=== PATIENT | female | born 1940 | race Hispanic/Latino ===

== ENCOUNTER 2017-07-14 20:27 | Emergency (ER) | payer MEDICARE, OTHER ==
[~2017-07-14] VITALS: Ht 154.9 cm; Wt 78.0 kg
[~2017-07-14 20:27] MED LIST: ADULT ASPIRIN81 MG PO; AMLODIPINE BESY10 MG PO; AMLODIPINE BESYL5 MG PO; ASPIR 8181 MG PO; BACTROBAN15 G1 SUBD; CARISOPRODOL350 MG PO; COUMADIN5 MG PO; DIGOXIN125 MCG PO; ENDOCET 5-3251 EACH PO; FORTICAL3.7 ML INH; FUROSEMIDE40 MG PO; IMDUR30 MG PO; INSULIN ASPART SQ; ISOSORBIDE MONO20 MG PO; LANTUS100 UNITS/ SQ; LIDODERM700 MG TOP; METOPROLOL TART25 MG PO; NOVOLIN 70100 UNITS/ SC; NOVOLIN 70100 UNITS/ SQ; NOVOLOG100 UNIT/1 SC; OMEPRAZOLE40 MG PO; PLAVIX75 MG PO; SIMVASTATIN40 MG PO; TOPROL XL25 MG PO; TRAMADOL PO; TYLENOL WITH C1 EACH PO; ULTRAM 50MG50 MG PO; VASOTEC10 MG PO; VITAMIN D-40400 UNIT PO; Z.0.AMLODIPINE BESYL PO; Z.0.ENALAPRIL MALEA2 PO; Z.0.FUROSEMIDE20 MG PO; Z.0.PLAVIX75 MG PO; Z.0.SIMVASTATIN40 MG PO
--- OUTSIDE RECORDS SUMMARY | 2017-07-14 20:31 | XMS REPORT ---
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 Allergies, Adverse Reactions, Alerts This patient has no known allergies or adverse reactions. Medications This patient has no known medications. Results Test Description Test Time Test Comments Text Results Atomic Results Result Comments CHEST SINGLE (PORTABLE) [place] [address] Patient Name: FAY LUO MR #: [id number] : 1940 Age/Sex: 76/F Req #: [id number] Adm Physician: Ordered by: ALIE CUELLAR MD Report #: [id number] Location: ER Room/Bed: Procedure: [id number] DX/CHEST SINGLE (PORTABLE) Exam Date: 10/18/16 Exam Time: 1340 REPORT STATUS: Signed PROCEDURE: CHEST SINGLE (PORTABLE) COMPARISON: 09/18/2016. INDICATIONS: HIGH BLOOD PRESSURE TOO HIGH FINDINGS: The lungs are well-inflated. No focal airspace consolidation, pleural effusion, or pneumothorax. Subsegmental atelectasis or scar in the left lung base, unchanged. Stable cardiomediastinal contour with tortuosity and atherosclerotic calcification of the thoracic aorta. Normal heart size. Coronary artery stents are again noted. No pulmonary edema. Small hiatal hernia. CONCLUSION: No acute cardiopulmonary abnormality. Dictated by: García Paredes M.D. on 10/18/2016 at 14:25 Electronically approved by: García Paredes M.D. on 10/18/2016 at 14 :25 Dictated By: GARCÍA PAREDES MD [id number] Transcribed By: ARSLAN on 10/18/16 142 COPY TO: ALIE CUELLAR MD
--- NOTE | 2017-07-14 21:54 | Diagnostic Imaging Report ---
Exam: Head CT without contrast History: Fall hit back of head Comparison studies: Head CT and brain MRI of 06/21/2016. Technique: Axial images were obtained from the skull base to the vertex. Coronal and sagittal images reconstructed from the axial data. Intravenous contrast: None Findings: Scalp: Small parieto-occipital scalp hematoma. Bones: No fractures, blastic or lytic lesions. Brain sulci: Mildly prominent. Ventricles: Compensatory dilatation. No hydrocephalus. Extra-axial spaces: No masses, no fluid collection. Parenchyma: No mass, acute hemorrhage or acute cortical vascular insult. Patchy and confluent hypodensities in the supratentorial white matter are nonspecific but most compatible with chronic small vessel ischemic changes. Small chronic lacunar insult in the right subinsular white matter and right frontal olmstead radiata. There are small cortical-subcortical insults in the midline posterior and inferior left cerebellum. Sellar/suprasellar region: No abnormalities. Craniocervical junction: Patent foramen magnum. No Chiari one malformation. Incidental findings: Atherosclerotic calcifications in the carotid siphons and intradural vertebral arteries. IMPRESSION: 1. Paramedian parietal occipital scalp hematoma without underlying fracture. 2. No acute intracranial abnormalities. 3. Mild generalized volume loss. 4. Severe chronic microvascular ischemic changes with chronic insults as described. Signed by: Dr. Froylan Menjivar M.D. on 07/14/2017 9:50 PM
[2017-07-14 23:22] VITALS: BP 125/62
== END 2017-07-14 23:48 | disposition home or self-care (01) ==
LOC: ER 20:27
DX: S00.03XA Contusion of scalp, initial encounter (principal); W05.0XXA Fall from non-moving wheelchair, initial encounter; Y92.89 Other specified places as the place of occurrence of the external cause; I10 Essential (primary) hypertension; Z86.718 Personal history of other venous thrombosis and embolism
CPT/HCPCS: 70450; 99283

== ENCOUNTER → 2018-04-21 | Outpatient (CLI) | payer MEDICARE ==
--- NOTE | 2018-04-21 15:45 | Diagnostic Imaging Report ---
EXAM: CHEST 2 VIEWS, PA and lateral DATE: 04/21/2018 Time stamp on exam: 2:12 PM INDICATION: Cough COMPARISON: 09/18/2016 FINDINGS: LINES/TUBES: None LUNGS: No consolidations or edema. PLEURA: No effusions or pneumothorax. HEART AND MEDIASTINUM: Normal size and contour. Tortuous thoracic aorta which is calcified. 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 BONES AND SOFT TISSUES: No acute findings with degenerative changes of the spine. IMPRESSION: No acute thoracic abnormality. Signed by: Dr. Carrillo Heard DO on 04/21/2018 3:42 PM
== END ==
LOC: RAD 13:52
PROVIDERS: ATTEND Internal Medicine
DX: R05 Cough (principal)
CPT/HCPCS: 71046

== ENCOUNTER 2018-08-02 12:39 | Observation (INO) | payer MEDICARE, OTHER ==
[~2018-08-02] VITALS: Ht 154.9 cm; Wt 90.7 kg
[2018-08-02] MEDS ORDERED: SODIUM CHLORIDE 0.9% 500ML 500 ML IV STA (13:47)
[2018-08-02 14:04] LABS: BASOPHILS # (AUTO) 0.1 (0.0-0.1); BASOPHILS % 0.7 % (0.0-1.0); EOSINOPHILS % 0.2 % (0.0-6.0); HEMOGLOBIN 11.3 g/dL (12.0-16.0); LYMPHOCYTES # (AUTO) 2.2 (1.0-3.2); LYMPHOCYTES % 18.4 % (18.0-39.1); MEAN CORPUSCULAR HEMOGLOBIN 28.6 pg (28-32); MEAN CORPUSCULAR HGB CONC 32.3 g/dL (31-35); MEAN CORPUSCULAR VOLUME 88.6 fL (81-99); MONOCYTES # (AUTO) 0.8 (0.2-0.8); MONOCYTES % 6.9 % (4.4-11.3); NEUTROPHILS # (AUTO) 8.8 (2.1-6.9); NEUTROPHILS % 73.4 % (38.7-80.0); PLATELET COUNT 378 x10e3/uL (140-360); RED BLOOD COUNT 3.95 x10e6/uL (3.6-5.1); RED CELL DISTRIBUTION WIDTH 17.7 % (11.7-14.4)
[2018-08-02 14:08] LABS: INR 1.6; PROTHROMBIN TIME 19.7 seconds (11.9-14.5)
[2018-08-02 14:18] LABS: ALBUMIN 3.1 g/dL (3.5-5.0); ALBUMIN/GLOBULIN RATIO 0.8 (0.8-2.0); ANION GAP 13.6 mmol/L (8-16); CALCIUM 9.3 mg/dL (8.4-10.2); CREATININE, SERUM 1.05 mg/dL (0.57-1.11); POTASSIUM 4.6 mmol/L (3.5-5.1)
[2018-08-02 14:20] LABS: BILIRUBIN,URINE NEGATIVE (NEGATIVE); CLARITY,URINE SL CLOUDY (CLEAR); KETONES,URINE NEGATIVE (NEGATIVE); LEUKOCYTE ESTERASE ,URINE SMALL (NEGATIVE); NITRITE,URINE NEGATIVE (NEGATIVE); PROTEIN,URINE DIPSTICK NEGATIVE (NEGATIVE); URINE UROBILINOGEN 0.2 mg/dL (0.2 - 1)
[2018-08-02 14:21] LABS: COLOR,URINE YELLOW (YELLOW)
[2018-08-02 14:24] LABS: CREATINE KINASE MB 0.6 ng/mL (0-5.0)
[2018-08-02 14:27] LABS: WBC,URINE (MAN) 21-50 /HPF (0-5)
[2018-08-02 14:28] LABS: BACTERIA,URINE MODERATE /HPF; EPITHELIAL CELLS,URINE FEW /LPF; RBC,URINE 0-5 /HPF (0-5)
--- NOTE | 2018-08-02 15:11 | Diagnostic Imaging Report ---
EXAMINATION: CHEST SINGLE (PORTABLE) INDICATION: ^ERMD ORDER ^[id number] ^1405 ^Y COMPARISON: Chest radiograph 04/21/2018 FINDINGS: AP view TUBES and LINES: None. LUNGS: Lungs are well inflated. Mild bilateral central pulmonary vascular congestion. Bibasilar atelectasis. PLEURA: No pleural effusion or pneumothorax. HEART AND MEDIASTINUM: Stable mild enlargement of the cardiac silhouette. The pulmonary arteries appear enlarged but is stable. BONES AND SOFT TISSUES: No acute osseous lesion. Soft tissues are unremarkable. UPPER ABDOMEN: No free air under the diaphragm. IMPRESSION: Stable cardiomegaly with associated central pulmonary vascular congestion. Signed by: Dr. Bonny Mac M.D. on 08/02/2018 3:08 PM
[2018-08-02] MEDS ORDERED: ONDANSETRON HCL INJ 2MG/ML 2ML 2 MG/ML VIAL IV PRN (15:30)
[2018-08-02] MEDS: CEFTRIAXONE SOD 1 GM/NS 50 ML 50 ML IV SCH (15:48)
[2018-08-02] MEDS: SODIUM CHLORIDE 0.9% 1000ML 1,000 ML IV SCH (15:48)
--- NOTE | 2018-08-02 16:13 | NUR ---
Received patient to the unit at this time from the ER. Patient is alert and oriented at this time. PIV with NS at 100 infusing. Family at the bedside. Patient has no complaints at this time. Oriented to the room and surroundings. Call pool within reach. Bed is low and locked. Educated patient to call for assistance. Patient ambulates with walker. Personal walker at the bedside.
[2018-08-02 16:34] VITALS: BP 152/70
[2018-08-02] MEDS ORDERED: PANTOPRAZOLE SO40 MG PO (18:37)
[2018-08-02] MEDS ORDERED: LEXAPRO10 MG PO (18:37)
[2018-08-02] MEDS ORDERED: ASPIRIN81 MG PO (18:37)
[2018-08-02] MEDS ORDERED: NITROGLYCERIN0.4 MG SL (18:37)
[2018-08-02] MEDS ORDERED: AMLODIPINE BESYL5 MG PO (18:37)
[2018-08-02 19:42] VITALS: BP 137/65
[2018-08-02 20:00] VITALS: BP 137/65
--- NOTE | 2018-08-02 20:00 | NUR ---
called for medication orders for insulin as the patients blood sugar is 228. Dr. Cerda called back for Dr. Bran orders to start low dose sliding scale starting with a blood sugar of 200 sliding scale. Restart home medications except blood pressure medications.
[2018-08-02 20:05] LABS: CREATINE KINASE MB 0.7 ng/mL (0-5.0)
[2018-08-02] MEDS ORDERED: DEXTROSE 50% SYRINGE 50 ML IV PRN (21:15)
[2018-08-02] MEDS: INSULIN REGULAR, HUMAN 100 UNIT/1 ML 3ML VIAL SQ SCH (22:23)
[2018-08-03] VITALS (9 sets, daily range): BP systolic 112–154; BP diastolic 57–70
[2018-08-03] MEDS: SODIUM CHLORIDE 0.9% 1000ML 1,000 ML IV SCH ×3 (00:29→21:57)
[2018-08-03] MEDS: CEFTRIAXONE SOD 1 GM/NS 50 ML 50 ML IV SCH ×2 (03:42→15:14)
[2018-08-03 05:25] LABS: BASOPHILS # (AUTO) 0.1 (0.0-0.1); BASOPHILS % 0.7 % (0.0-1.0); EOSINOPHILS # (AUTO) 0.1 (0.0-0.4); EOSINOPHILS % 1.2 % (0.0-6.0); HEMATOCRIT 32.7 % (34.2-44.1); HEMOGLOBIN 10.4 g/dL (12.0-16.0); LYMPHOCYTES # (AUTO) 3.5 (1.0-3.2); LYMPHOCYTES % 36.4 % (18.0-39.1); MEAN CORPUSCULAR HGB CONC 31.8 g/dL (31-35); MEAN CORPUSCULAR VOLUME 88.1 fL (81-99); MONOCYTES # (AUTO) 0.7 (0.2-0.8); MONOCYTES % 7.1 % (4.4-11.3); NEUTROPHILS # (AUTO) 5.2 (2.1-6.9); NEUTROPHILS % 54.4 % (38.7-80.0); PLATELET COUNT 379 x10e3/uL (140-360); RED BLOOD COUNT 3.71 x10e6/uL (3.6-5.1); RED CELL DISTRIBUTION WIDTH 17.6 % (11.7-14.4)
[2018-08-03 05:40] LABS: CALCIUM 8.6 mg/dL (8.4-10.2); CREATININE, SERUM 0.91 mg/dL (0.57-1.11)
[2018-08-03 06:01] LABS: CREATINE KINASE MB 0.9 ng/mL (0-5.0)
[2018-08-03] MEDS: INSULIN REGULAR, HUMAN 100 UNIT/1 ML 3ML VIAL SQ SCH ×4 (07:30→21:09)
[2018-08-03] MEDS: ESCITALOPRAM OXALATE 10 MG TAB PO SCH (09:21)
[2018-08-03] MEDS: ASPIRIN 81 MG ENTERIC COATED PO SCH (09:21)
[2018-08-03] MEDS: METOPROLOL TARTRATE 25 MG TAB PO SCH (09:21)
[2018-08-03] MEDS: PANTOPRAZOLE SOD 40 MG TABEC PO SCH (09:21)
[2018-08-03] MEDS: FUROSEMIDE 20 MG TAB PO SCH (09:21)
--- NOTE | 2018-08-03 10:59 | NUR ---
SW met with patient and grand daughter at bedside. Patient resides with one of her daughters (Leatha). Patient has a large family who are involved in her care and all lives very close to one another. Patient receives homecare services M-F 9 hours daily. Patient requires assistance with ADL and uses a rollator, cane and shower chair. Patient has not had any changed in medication and fully understands what each prescription is for. Patient has not had any hospitalization in the last 6 months.
--- NOTE | 2018-08-03 11:03 | NUR ---
AGUSTIN letter discussed with granddaughter and patient. AGUSTIN signed and copy placed in chart.
[2018-08-03 13:07] LABS: CREATINE KINASE MB 1.2 ng/mL (0-5.0)
--- NOTE | 2018-08-03 13:26 | History and Physical ---
CHIEF COMPLAINT: "I almost passed out in the shower. HISTORY OF PRESENT ILLNESS: This 78-year-old woman, who presented to [facility] with episode of presyncope and lightheadedness. On admission to emergency room, the patient's systolic blood pressure was 70 mmHg. The patient states that on day of admission, she began feeling lightheaded and weak. In the emergency room, the patient was found to have urinary tract infection. The preliminary urine culture are showing gram-negative bacillus greater than 100,000 colony- forming units/mL urine. On admission, the patient's white blood cell count was 12,400 with 73% segmented neutrophils. The patient's white blood cell count today is 9500 with 54% segmented neutrophils. On admission, the patient's BUN and creatinine were 19 and 1.05 respectively. Today's BUN and creatinine are 19 and 0.91 respectively. The patient was admitted for further evaluation and treatment. REVIEW OF SYSTEMS: GENERAL: The patient complained of chills, but no fever on day of admission and also complained of lightheadedness and generalized weakness. HEENT: Denies any headaches or vision changes. CARDIOVASCULAR/RESPIRATORY: No chest pain. No shortness of breath or cough. No palpitations. GI: No nausea, vomiting, or constipation. : No UTI symptoms other than dark urine. NEUROMUSCULAR: No limb weakness or numbness, but she felt very lightheaded and weak, and almost passed out. ALLERGIES: ADHESIVE TAPE. PAST SURGICAL HISTORY: 1. Lumbar spine surgery. 2. Four coronary stents placed in 2008. 3. Right carotid endarterectomy. 4. Cholecystectomy and exploratory laparotomy with repair of paraesophageal hiatal hernia, and also inguinal hernia repair. PAST MEDICAL HISTORY: 1. Hypertensive heart disease. 2. Type 2 diabetes. 3. Mild obesity. 4. Coronary artery disease (history of 4 coronary stents placed in 2008). 5. GERD. 6. Ischemic heart disease. 7. Chronic atrial fibrillation. 8. History of pulmonary embolism. 9. History of deep venous thrombosis. 10. Depression. 11. Hyperlipidemia. FAMILY HISTORY: Both parents with coronary artery disease. SOCIAL HISTORY: This woman is a and lives with her adult daughter. No history of tobacco or alcohol use. She has a very supportive family. HOME MEDICATIONS: 1. Amlodipine 2.5 mg daily. 2. Enalapril 20 mg daily. 3. Lexapro 10 mg daily. 4. Furosemide 20 mg daily. 5. NovoLog insulin 8 to 12 units 3 times a day with meals. 6. Isosorbide mononitrate 30 mg daily. 7. Metoprolol tartrate 25 mg daily. 8. Nitroglycerin 0.4 mg 1 sublingual every 5 minutes p.r.n. chest pain. 9. Pantoprazole 40 mg daily. 10. Simvastatin 40 mg at bedtime. 11. Warfarin 5 mg every evening. PHYSICAL EXAMINATION: GENERAL: She is awake, alert, fluent, in no distress, very pleasant. Adult daughter and granddaughter at bedside. VITAL SIGNS: Height 5 feet 1 inch, weight 200 pounds, BMI 38, blood pressure 128/58, pulse 60, respiratory rate is 18, temperature 96.0, and oxygen saturation 96% on room air. INTEGUMENT: Skin is warm and dry. No pallor, jaundice, or diaphoresis. HEENT: Anicteric sclerae. Moist mucous membrane. NECK: Supple. CARDIOVASCULAR: Distant heart sounds. Regular rate and rhythm. LUNGS: No rales. No rhonchi or wheezes. ABDOMEN: Obese and benign. EXTREMITIES: No edema or deformity. NEURO: Intact. DIAGNOSES: 1. Sepsis secondary to gram-negative teja urinary tract infection. 2. Chronic atrial fibrillation. 3. History of pulmonary emboli/deep venous thrombosis. 4. History of cerebrovascular accident. 5. Coronary artery disease (history of coronary stent placement in 2008). 6. Obesity. BMI 38. 7. Type 2 diabetes mellitus. PLAN: 1. Follow urine culture. 2. Intravenous ceftriaxone. 3. Follow electrolytes and renal function. 4. Continue warfarin therapy since she has history of chronic atrial fibrillation as well as deep venous thrombosis and pulmonary emboli. 5. Follow up prothrombin time and INR level. Spent 35 minutes in the care of the patient. MD HILDA Zepeda/BLANCA /[id number] MTDD
--- NOTE | 2018-08-03 15:53 | NUR ---
Blood sugar checked twice, first time is 47, second time is 51. Two orange juice given to patient. Patient is asymptomatic at this time. A&Ox3. Will recheck sugar.
--- NOTE | 2018-08-03 17:09 | NUR ---
Recheck of patient's blood sugar is 126. No additional interventions needed.
[2018-08-03] MEDS: WARFARIN SOD 2 MG TAB PO SCH (17:21)
[2018-08-03] MEDS: SIMVASTATIN 40 MG TAB PO SCH (21:09)
[2018-08-04] VITALS (9 sets, daily range): BP systolic 128–174; BP diastolic 59–80
[2018-08-04] MEDS: CEFTRIAXONE SOD 1 GM/NS 50 ML 50 ML IV SCH ×2 (03:13→14:49)
[2018-08-04 05:07] LABS: BASOPHILS # (AUTO) 0.1 (0.0-0.1); BASOPHILS % 1.1 % (0.0-1.0); EOSINOPHILS # (AUTO) 0.2 (0.0-0.4); HEMATOCRIT 30.7 % (34.2-44.1); HEMOGLOBIN 9.9 g/dL (12.0-16.0); LYMPHOCYTES # (AUTO) 3.1 (1.0-3.2); LYMPHOCYTES % 43.5 % (18.0-39.1); MEAN CORPUSCULAR HEMOGLOBIN 28.3 pg (28-32); MEAN CORPUSCULAR HGB CONC 32.2 g/dL (31-35); MEAN CORPUSCULAR VOLUME 87.7 fL (81-99); MONOCYTES # (AUTO) 0.7 (0.2-0.8); MONOCYTES % 9.3 % (4.4-11.3); NEUTROPHILS # (AUTO) 3.1 (2.1-6.9); PLATELET COUNT 372 x10e3/uL (140-360); RED CELL DISTRIBUTION WIDTH 18.1 % (11.7-14.4)
[2018-08-04 05:17] LABS: INR 1.65; PROTHROMBIN TIME 20.1 seconds (11.9-14.5)
[2018-08-04 05:26] LABS: ALANINE AMINOTRANSFERASE 11 IU/L (0-55); ALBUMIN 2.6 g/dL (3.5-5.0); ALBUMIN/GLOBULIN RATIO 0.8 (0.8-2.0); ALKALINE PHOSPHATASE 71 IU/L (40-150); ANION GAP 9.7 mmol/L (8-16); BLOOD UREA NITROGEN 12 mg/dL (7-26); BUN/CREATININE RATIO 15 (6-25); CALCIUM 8.2 mg/dL (8.4-10.2); CARBON DIOXIDE 21 mmol/L (22-29); CHLORIDE 110 mmol/L (98-107); CREATININE, SERUM 0.79 mg/dL (0.57-1.11); EST GLOMERULAR FILTRATION RATE > 60 ML/MIN (60-); GLUCOSE 143 mg/dL (74-118); POTASSIUM 3.7 mmol/L (3.5-5.1); SODIUM 137 mmol/L (136-145)
--- NOTE | 2018-08-04 05:32 | NUR ---
patient called around midnight stating her IV was leaking. Upon inspection the IV was leaking. The left AC IV was removed with the catheter intact. No redness noted. New IV was placed in the right forearm 22g.
[2018-08-04] MEDS: INSULIN REGULAR, HUMAN 100 UNIT/1 ML 3ML VIAL SQ SCH ×4 (07:30→20:45)
[2018-08-04] MEDS: SODIUM CHLORIDE 0.9% 1000ML 1,000 ML IV SCH ×3 (07:32→20:41)
[2018-08-04] MEDS: PANTOPRAZOLE SOD 40 MG TABEC PO SCH (09:11)
[2018-08-04] MEDS: ESCITALOPRAM OXALATE 10 MG TAB PO SCH (09:11)
[2018-08-04] MEDS: METOPROLOL TARTRATE 25 MG TAB PO SCH (09:11)
[2018-08-04] MEDS: ASPIRIN 81 MG ENTERIC COATED PO SCH (09:11)
[2018-08-04] MEDS: FUROSEMIDE 20 MG TAB PO SCH (09:11)
[2018-08-04] MEDS ORDERED: ONDANSETRON HCL 4 MG ORAL DISINTEGRATING TAB PO PRN (13:30)
--- NOTE | 2018-08-04 16:30 | NUR ---
per -cardiology, if v/s stable, patient may d/c tomorrow 08/05/18.
[2018-08-04] MEDS: WARFARIN SOD 2 MG TAB PO SCH (17:13)
[2018-08-04] MEDS: SIMVASTATIN 40 MG TAB PO SCH (20:41)
--- NOTE | 2018-08-04 23:18 | Consultation ---
DATE OF CONSULTATION: Cardiology Consultation CHIEF COMPLAINT: The patient is a 78-year-old with a near syncopal episode. HISTORY OF PRESENT ILLNESS: The patient came to the emergency room feeling very dizzy and felt like she was going to pass out. The patient was given IV fluids with improvement in her symptoms. The patient was noted to have an elevated white blood cell count and urinary tract infection. The patient had no chest pain. No shortness of breath. No nausea. No vomiting. PAST MEDICAL HISTORY: Significant for: 1. Coronary stents placed in 2008. 2. Previous right carotid endarterectomy. 3. Lumbar laminectomy. 4. Previous cholecystectomy. 5. Previous repair of paraesophageal hiatal hernia. 6. Coronary artery disease. 7. Hypertension. 8. Diabetes. 9. Chronic atrial fibrillation. 10. History of deep venous thrombosis and pulmonary embolism. MEDICATIONS: At home include amlodipine, enalapril, Lexapro, furosemide, insulin, metoprolol, warfarin, and simvastatin. SOCIAL HISTORY: The patient lives with her daughter. The patient does not smoke and does not drink. PHYSICAL EXAMINATION: GENERAL: The patient is a well-developed, well-nourished female, in no obvious distress. VITAL SIGNS: Current vital signs include a temperature of 97.9, blood pressure of 162/69, and pulse of 62. HEAD, EARS, EYES, NOSE, AND THROAT: The patient's cranium was normocephalic and atraumatic. Extraocular muscles were intact. Sclerae were anicteric. Pupils were equal, round, and reactive to light. There was no pallor or cyanosis of the oral mucosa. There is no erythema or edema of the throat. NECK: Supple. No jugular venous distention. No carotid bruits. CHEST: Demonstrated rhonchi bilaterally. CARDIAC: Demonstrated a normal S1 and S2 with a short 2/6 systolic murmur. ABDOMEN: Demonstrated good bowel sounds. No tenderness and no masses. EXTREMITIES: There is no clubbing, no cyanosis, and no edema. NEUROLOGIC: The patient was alert and oriented x3. Cranial nerves II through XII are intact. Motor strength was 5/5 in all limbs. IMAGING DATA: The patient's EKG demonstrated normal sinus rhythm with an old anterior wall myocardial infarction. IMPRESSION: The patient is a 78-year-old with a syncopal episode of unclear origin, but I suspect this is most likely related to volume depletion and combination with the urinary tract infection. RECOMMENDATIONS: Are as follows: 1. The patient will need to be monitored on telemetry. 2. I feel that an echocardiogram should be done. 3. I feel that the patient should have a carotid duplex done. MD DESI Dugan/MODL /[id number] cc: Miryam Bran MD
[2018-08-05] VITALS: BP 143/73
[2018-08-05] MEDS: CEFTRIAXONE SOD 1 GM/NS 50 ML 50 ML IV SCH (03:50)
[2018-08-05 04:00] VITALS: BP 125/73
--- NOTE | 2018-08-05 04:04 | Discharge Summary ---
HOSPITAL COURSE: Ms. Mcrae is a 78-year-old female, who came to the emergency room because she was lightheaded and had like a near syncopal episode. She was not feeling good. Blood pressure was low, so they called the ambulance and she was brought to the emergency room. The urine culture showed Klebsiella pneumoniae, so the patient was hypotensive with elevated white count and UTI, so she was developing sepsis. She was started on IV antibiotics. She has a long history of heart problems also. PHYSICAL EXAMINATION: GENERAL: Today, she is awake and alert. She is feeling better. VITAL SIGNS: Temperature is 96.9 and blood pressure is 162/69. HEART: Regular rate. LUNGS: Clear to auscultation. ABDOMEN: Soft. LABORATORY DATA: On the blood work; potassium is 3.7, creatinine is 0.79, glucose is 143. White count at admission was 12.04, now 7.10, hemoglobin is 9.9, hematocrit 30.7. Urine show 21-50 white blood cells. A urine culture is showing Klebsiella pneumoniae that is sensitive to almost all the antibiotics except for ampicillin. Chest x-ray on admission has a stable cardiomegaly with associated central pulmonary vascular congestion. ASSESSMENT: 1. Sepsis secondary to urinary tract infection. 2. Urinary tract infection with Klebsiella pneumoniae. 3. Near syncopal episode. 4. Chronic atrial fibrillation. 5. Coronary artery disease, status post stent. 6. History of deep venous thrombosis and pulmonary embolism. 7. Diabetes type 2 with hypoglycemia. PLAN: At the present time, the patient is doing better. Blood pressure is a little elevated. White count back to normal. She has been afebrile. We have the urine culture results back, so upon discharge, she is going to be on Cipro 250 twice a day for seven more days since she has had long history of heart problems. We are going to get a Cardiology consult with Dr. Olivas to evaluate the patient prior to discharge and if it is okay with him, she is going to be able to go home on p.o. antibiotics. She is to continue her metoprolol 25 mg daily, warfarin 4 mg daily, Protonix 40 mg daily, simvastatin 40 mg daily, Lexapro 10 mg daily, furosemide 20 mg daily, and continue diabetes medications. All this was discussed with the patient. All questions were answered to satisfaction. She needs follow up with me in one week. Please see home medication reconciliation list. MD ANA ROSA London/BLANCA /[id number]
--- NOTE | 2018-08-05 07:10 | NUR ---
Walking rounds done and report received. Patient is awake and alertx3 in NAD. Tele #[phone], [phone]. Patient instructed to call for assistance as needed and verbalized understanding. Call pool within reach.
--- NOTE | 2018-08-05 07:14 | NUR ---
report given to Poornima HUANG. Patient is A&0X3, iv intact
[2018-08-05] MEDS: INSULIN REGULAR, HUMAN 100 UNIT/1 ML 3ML VIAL SQ SCH (07:30)
[2018-08-05 08:03] VITALS: BP 148/65
[2018-08-05] MEDS: ASPIRIN 81 MG ENTERIC COATED PO SCH (08:04)
[2018-08-05] MEDS: FUROSEMIDE 20 MG TAB PO SCH (08:04)
[2018-08-05] MEDS: ESCITALOPRAM OXALATE 10 MG TAB PO SCH (08:04)
[2018-08-05] MEDS: PANTOPRAZOLE SOD 40 MG TABEC PO SCH (08:05)
[2018-08-05] MEDS: METOPROLOL TARTRATE 25 MG TAB PO SCH (08:05)
[2018-08-05] MEDS ORDERED: CIPRO500 MG PO (09:18)
--- NOTE | 2018-08-05 09:25 | Discharge Summary ---
HOSPITAL COURSE: Ms. Mcrae is a 78-year-old female with multiple medical problems, history of CAD status post stent, diabetes, hypertension, who came to the emergency room complaining of feeling weak like she was going to pass out. When she came to the emergency room she was found to have a urinary tract infection with Klebsiella pneumoniae. She was started on IV antibiotics. Cardiology evaluated her and cleared her today to go home. PHYSICAL EXAMINATION: GENERAL: Today, she is awake and alert. She is feeling better. VITAL SIGNS: Temperature is 97.6, blood pressure 148/65. HEART: Irregularly irregular. LUNGS: Clear to auscultation. ABDOMEN: Distended and soft. EXTREMITIES: Lower extremity, no edema, no erythema. LABORATORY DATA: On the blood work, potassium 3.7, creatinine is 0.79, glucose is 143. White count is 7.10, hemoglobin 9.9, hematocrit 30.7. The urine culture is showing Klebsiella pneumoniae sensitive to Cipro. Chest x-ray on admission shows stable cardiomegaly and associated pulmonary vascular congestion. DISCHARGE DIAGNOSES: 1. Sepsis secondary to urinary tract infection. 2. Urinary tract infection with Klebsiella pneumoniae. 3. Near syncopal episode. 4. Chronic atrial fibrillation. 5. Coronary artery disease, status post stent. 6. Diabetes type 2 with hyperglycemia. 7. History of pulmonary embolism and deep vein thrombosis. PLAN: The plan at present time is to discharge the patient home on Cipro 250 mg twice a day for 7 more days. She needs to continue all her home medications. She is on Protonix 40 mg daily, simvastatin 40 mg daily, Lexapro 10 mg daily, furosemide 20 mg daily, metoprolol 25 mg daily, warfarin 4 mg daily, aspirin 81 mg daily. She needs follow up with me in 1 week, with marine fitter as directed by him. She is to call me or come back to the emergency room if any recurrent problem. All this was discussed with the patient. All questions were answered to satisfaction. MD ANA ROSA London/BLANCA /[id number]
--- NOTE | 2018-08-05 10:20 | NUR ---
Patient discharged home with daughter, written instructions and prescription. Both verbalized understanding. IV dc'd earlier, cath intact and small dressing applied.
== END 2018-08-05 10:09 | disposition home or self-care (01) ==
LOC: ER 12:39 → ERHOLD 15:16 → MED/SURG2 16:14
PROVIDERS: ADMIT Internal Medicine; ATTEND Internal Medicine
DX: A41.50 Gram-negative sepsis, unspecified (principal); N30.00 Acute cystitis without hematuria; I48.2 Chronic atrial fibrillation; I95.9 Hypotension, unspecified; R55 Syncope and collapse; E11.649 Type 2 diabetes mellitus with hypoglycemia without coma; I11.0 Hypertensive heart disease with heart failure; I50.30 Unspecified diastolic (congestive) heart failure; I25.2 Old myocardial infarction; E78.5 Hyperlipidemia, unspecified; Z91.048 Other nonmedicinal substance allergy status; Z83.3 Family history of diabetes mellitus; Z82.49 Family history of ischemic heart disease and other diseases of the circulatory system; Z95.5 Presence of coronary angioplasty implant and graft; Z90.49 Acquired absence of other specified parts of digestive tract; E66.9 Obesity, unspecified; I25.10 Atherosclerotic heart disease of native coronary artery without angina pectoris; F32.9 Major depressive disorder, single episode, unspecified; K21.9 Gastro-esophageal reflux disease without esophagitis; Z86.718 Personal history of other venous thrombosis and embolism; Z86.711 Personal history of pulmonary embolism; Z79.01 Long term (current) use of anticoagulants; Z86.73 Personal history of transient ischemic attack (TIA), and cerebral infarction without residual deficits; Z68.38 Body mass index [BMI] 38.0-38.9, adult; B96.1 Klebsiella pneumoniae [K. pneumoniae] as the cause of diseases classified elsewhere; Z79.4 Long term (current) use of insulin
CPT/HCPCS: 36415 ×4; 71045; 80048; 80053 ×2; 81001; 82550 ×2; 82553 ×2; 82948 ×4; 84484 ×2; 85025 ×3; 85610 ×2; 85730; 87086; 87186; 93005; 93880; 96360; 99284; G0378 ×4; J0696 ×4; J1817; J7030 ×3; J7040; S0164 ×3

== ENCOUNTER 2019-01-15 09:59 | Emergency (ER) | payer MEDICARE, OTHER ==
[~2019-01-15] VITALS: Ht 154.9 cm; Wt 90.7 kg
[~2019-01-15 09:59] MED LIST changes: +ASPIRIN81 MG PO; +CIPRO500 MG PO; +LEXAPRO10 MG PO; +NITROGLYCERIN0.4 MG SL; +PANTOPRAZOLE SO40 MG PO
--- OUTSIDE RECORDS SUMMARY | 2019-01-15 10:05 | XMS REPORT | Summary of Care ---
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 Active furosemide 20 mg tablet Take 20 mg by 0 mouth daily. Active enalapril 20 mg tablet Take 20 mg by 0 mouth daily. Active metoprolol succinate XL Take 25 mg by 0 25 mg 24 hr tablet mouth daily. Active warfarin (COUMADIN) 4 mg Take 4 mg by 0 tablet mouth. Active simvastatin 40 mg tablet Take 40 mg by 0 mouth at bedtime. Active amLODIPine 5 mg tablet Take 5 mg by 0 mouth daily. Active pantoprazole 40 mg EC Take 40 mg by 0 tablet mouth daily. Active escitalopram oxalate Take 10 mg by 0 (LEXAPRO) 10 mg tablet mouth daily. Active alendronate 70 mg tablet Take 70 mg by 0 mouth weekly. Active Insulin Syringe-Needle Use as 100 Syringe 2 U-100 (BD INSULIN directed 9 SYRINGE) 0.3 mL 29 gauge x 1/2" SyrgIndications: Type 2 diabetes mellitus with hypoglycemia without coma, with long-term current use of insulin Active Insulin NPH-Regular Human inject 25 15 mL 3 Rec (HUMULIN 70/30 U-100 Units under 9 KWIKPEN) 100 unit/mL the skin with (70-30) injection lunch. E11.9 Active Insulin [place], Use to inject 100 Each 1 Disposable, (BD KAI 2ND insulin 9 GEN PEN NEEDLE) 32 gauge daily. E11.9 x 5/32" Ndle 11/04/2018 Discontinued insulin NPH and regular inject 25 2 Vial 3 human 70-30 100 unit/mL Units under 9 (70-30) the skin with injectionIndications: lunch. Type 2 diabetes mellitus with hypoglycemia without coma, with long-term current use of insulin documented as of this encounter (statuses as of 11/04/2018) Active Problems Not on filedocumented as of this encounter (statuses as of 11/04/2018) Social History Date Tobacco Use Types Packs/Day Years Used Never Smoker Smokeless Tobacco: Never Used Drinks/Week oz/Week Comments Alcohol Use Never Alcohol Habits Answer Date Recorded How often do you have a drink containing alcohol? Never 09/05/2018 How many drinks containing alcohol do you have on Not asked a typical day when you are drinking? How often do you have six or more drinks on one Not asked occasion? Sex Assigned at Date Recorded Not on file Industry Job Start Date Occupation Not on file Not on file Not on file Travel End Travel History Travel Start No recent travel history available. documented as of this encounter Last Filed Vital Signs Not on filedocumented in this encounter Plan of Treatment Care Team Description Date Type Specialty Sterling Wilson MD [address] [place] [id number] [phone] 01/16/2019 Office Visit Endocrinology Diabetes & Metabolism Health Maintenance Due Date Last Done Comments HgA1C 1941 CREATININE (SERUM) 1952 EYE EXAM 1952 LDL-C 1952 URINE MICROALBUMIN 1952 FOOT EXAM 1960 DTaP,Tdap,and Td Vaccines 1961 (1 - Tdap) Zoster Recombinant 1992 Vaccine (SHINGRIX) (1 of 2) Medicare Wellness Visit 2007 Osteoporosis Screening 2007 PNEUMOCOCCAL VACCINES 65+ 2007 (1 of 2 - PCV13) INFLUENZA VACCINE (#1) 2018 documented as of this encounter Results Not on filedocumented in this encounter Insurance Type Payer Benefit Subscriber ID Effective Phone Address Plan / Dates Group Medicare MEDICARE MEDICARE xxxxxxxxxxx 2007-P [phone] [address] [place] [id number] DAV[place] GRIGGS [id number] Medicaid [facility] xxxxxxxxx 2018-P PLAN - MANAGED MEDICAID STAR PLUS resent documented as of this encounter
--- OUTSIDE RECORDS SUMMARY | 2019-01-15 10:05 | XMS REPORT | Summary of Care ---
Author Author [facility] - Health Organization [facility] - Health Address Unknown Phone Unavailable Care Team Providers Care Underground Foreman Name Role Phone Ana Hobson PCP Reason for Visit * Reason Comments Refill Request Medication Dose Change Encounter Details Care Team Description Date Type Department Sterling Wilson MD [address] [place] [id number] Refill Request; Medication Dose Change 11/11/2018 Telephone [facility] Endocrinology, [address] [phone] Allergies No Known Allergiesdocumented as of this encounter (statuses as of 11/12/2018) Medications End Date Status Medication Sig Dispensed [...] long-term current use of insulin Active Insulin Haiku, Use to inject 100 Each 1 Disposable, (BD KAI 2ND insulin 9 GEN PEN NEEDLE) 32 gauge daily. E11.9 x 5/32" Ndle Active insulin degludec (TRESIBA inject 10 2 Syringe 4 FLEXTOUCH U-100) 100 Units under 9 unit/mL (3 mL) the skin InPnIndications: Type 2 every diabetes mellitus with morning. hypoglycemia without coma, with long-term current use of insulin Active insulin lispro (HUMALOG inject 6 2 Syringe 4 KWIKPEN INSULIN) 100 Units under 9 unit/mL pen the skin 2 injectorIndications: Type (two) times 2 diabetes mellitus with daily with hypoglycemia without meals. coma, with long-term current use of insulin 11/12/2018 Discontinued Insulin NPH-Regular Human inject 25 15 mL 3 Rec (HUMULIN 70/30 U-100 Units under 9 KWIKPEN) 100 unit/mL the skin with (70-30) injection lunch. E11.9 documented as of this encounter (statuses as of 11/12/2018) Active Problems Not on filedocumented as of this encounter (statuses as of 11/12/2018) Social History Date Tobacco Use Types Packs/Day [...] Description Date Type Specialty Sterling Wilson MD [address] [place] [address] [phone] 01/16/2019 Office Visit Endocrinology Diabetes & Metabolism [...] Results Not on filedocumented in this encounter Visit Diagnoses Diagnosis Type 2 diabetes mellitus with hypoglycemia without coma, with long-term current use of insulin - Primary documented in this encounter Insurance Type Payer Benefit Subscriber ID Effective Phone Address Plan / Dates Group Medicare MEDICARE MEDICARE xxxxxxxxxxx 2007-P [phone] resent [id number] [place] [phone] Medicaid [employer] [place] xxxxxxxxx 2018-P PLAN - MANAGED MEDICAID STAR PLUS resent documented as of this encounter
--- OUTSIDE RECORDS SUMMARY | 2019-01-15 10:05 | XMS REPORT | Summary of Care ---
Author Author [facility] - Health Organization [facility] - Health Address Unknown Phone Unavailable Care Team Providers Care Analyst Programmer Name Role Phone Ana Hobson PCP Reason for Visit * Reason Comments Refill Request Encounter Details Care Team Description Date Type Department Sterling Wilson MD [address] [place] [address] [id number] Refill Request 11/02/2018 Refill [facility] Endocrinology, [address] [place] [phone] Allergies No Known Allergiesdocumented as of this encounter (statuses as of 11/03/2018) Medications End Date Status Medication Sig Dispensed [...] 70 mg by 0 mouth weekly. Active insulin NPH and regular inject 25 2 Vial 3 human 70-30 100 unit/mL Units under 9 (70-30) the skin with injectionIndications: lunch. Type 2 diabetes mellitus with hypoglycemia without coma, with long-term current use of insulin Active Insulin Syringe-Needle Use as 100 Syringe 2 U-100 (BD INSULIN directed 9 SYRINGE) 0.3 mL 29 gauge x 1/2" SyrgIndications: Type 2 diabetes mellitus with hypoglycemia without coma, with long-term current use of insulin documented as of this encounter (statuses as of 11/03/2018) Active Problems Not on filedocumented as of this encounter (statuses as of 11/03/2018) Social History Date Tobacco Use Types Packs/Day [...] Description Date Type Specialty Sterling Wilson MD [address] [place] [address] [phone] 01/16/2019 Office Visit Endocrinology Diabetes & Metabolism [...] Dates Group Medicare MEDICARE MEDICARE xxxxxxxxxxx 2007-P [phone] resent [id number] [place] [id number] Medicaid [employer] [place] xxxxxxxxx 2018-P PLAN - MANAGED MEDICAID STAR PLUS resent documented as of this encounter
--- OUTSIDE RECORDS SUMMARY | 2019-01-15 10:05 | XMS REPORT | Summary of Care ---
Author Author [facility] - Health Organization [facility] - Health Address Unknown Phone Unavailable Care Team Providers Care Mixer Operator Tablets Name Role Phone Ana Hobson PCP Reason for Visit * Reason Comments Refill Request Encounter Details Care Team Description Date Type Department Sterling Wilson MD [address] [place] [address] [phone] Refill Request 10/30/2018 Refill [facility] Endocrinology, [address] [place] [phone] Allergies No Known Allergiesdocumented as of this encounter (statuses as of 10/31/2018) Medications End Date Status Medication Sig Dispensed [...] as of this encounter (statuses as of 10/31/2018) Active Problems Not on filedocumented as of this encounter (statuses as of 10/31/2018) Social History Date Tobacco Use Types Packs/Day [...] Description Date Type Specialty Sterling Wilson MD [address] [place] [address] [phone] 01/16/2019 Office Visit Endocrinology Diabetes & Metabolism [...] Dates Group Medicare MEDICARE MEDICARE xxxxxxxxxxx 2007-P [phone] [address] resent [id number] [place] [id number] Medicaid [employer] [place] xxxxxxxxx 2018-P PLAN - MANAGED MEDICAID STAR PLUS resent documented as of this encounter
--- OUTSIDE RECORDS SUMMARY | 2019-01-15 10:05 | XMS REPORT | Summary of Care ---
Author Author [facility] - Health Organization [facility] - Health Address Unknown Phone Unavailable Care Team Providers Care Corporate Analyst Name Role Phone Ana Hobson PCP Reason for Visit * Reason Comments Refill Request Encounter Details Care Team Description Date Type Department Sterling Wilson MD [address] [place] [address] [phone] Refill Request 10/29/2018 Refill [facility] Endocrinology, [address] [place] [phone] Allergies No Known Allergiesdocumented as of this encounter (statuses as of 10/29/2018) Medications End Date Status Medication Sig Dispensed [...] as of this encounter (statuses as of 10/29/2018) Active Problems Not on filedocumented as of this encounter (statuses as of 10/29/2018) Social History Date Tobacco Use Types Packs/Day [...] Description Date Type Specialty Sterling Wilson MD [address] [place] [address] [phone] 01/16/2019 Office Visit Endocrinology Diabetes & Metabolism [...] Dates Group Medicare MEDICARE MEDICARE xxxxxxxxxxx 2007-P [phone] [address] resent [id number] [place] [id number] Medicaid [employer] [place] xxxxxxxxx 2018-P PLAN - MANAGED MEDICAID STAR PLUS resent documented as of this encounter
[2019-01-15 11:00] LABS: INR 4.05
[2019-01-15] MEDS ORDERED: ONDANSETRON HCL INJ 2MG/ML 2ML 2 MG/ML VIAL IV ONE (11:00)
[2019-01-15] MEDS ORDERED: MORPHINE SULFATE 2 MG/ML SYR 1ML IV ONE (11:00)
[2019-01-15 11:26] LABS: PROTHROMBIN TIME 40.2 seconds (11.9-14.5)
--- NOTE | 2019-01-15 12:11 | Diagnostic Imaging Report ---
EXAMINATION: KNEE LEFT THREE VIEWS INDICATION: Trauma COMPARISON: None FINDINGS: No acute fracture or dislocation. Alignment is anatomic. Minimal degenerative change. No substantial joint effusion. Athetotic arterial calcifications. IMPRESSION: No acute osseous injury. Signed by: Eldon Green MD on 01/15/2019 12:07 PM
--- NOTE | 2019-01-15 12:15 | Diagnostic Imaging Report ---
EXAMINATION: ANKLE 3+ VIEWS LEFT, FOOT LEFT COMPLETE INDICATION: Left ankle and foot pain, trauma COMPARISON: None FINDINGS: Left ankle: There are mildly displaced fractures through the medial and lateral malleolus with extension to the tibiotalar joint at multiple sites. Moderate ankle joint effusion. Severe associated circumferential ankle soft tissue swelling Left foot: Diffuse osteopenia. No acute displaced fracture. Severe degenerative changes at the first MTP joint with gxqo-se-[id number] contact and large bulky osteophyte formation. Medial subluxation of the proximal phalanx at the second and third MTP joints. Diffuse soft tissue edema. IMPRESSION: Mildly displaced acute fractures of the medial and lateral malleolus with multiple sites of extension to the tibiotalar joint. Severe associated soft tissue swelling and moderate ankle joint effusion. Signed by: Eldon Green MD on 01/15/2019 12:12 PM
--- NOTE | 2019-01-15 12:15 | Diagnostic Imaging Report ---
EXAMINATION: ANKLE 3+ VIEWS LEFT, FOOT LEFT COMPLETE INDICATION: Left ankle and foot pain, trauma COMPARISON: None FINDINGS: Left ankle: There are mildly displaced fractures through the medial and lateral malleolus with extension to the tibiotalar joint at multiple sites. Moderate ankle joint effusion. Severe associated circumferential ankle soft tissue swelling Left foot: Diffuse osteopenia. No acute displaced fracture. Severe degenerative changes at the first MTP joint with oepp-tv-oiip contact and large bulky osteophyte formation. Medial subluxation of the proximal phalanx at the second and third MTP joints. Diffuse soft tissue edema. IMPRESSION: Mildly displaced acute fractures of the medial and lateral malleolus with multiple sites of extension to the tibiotalar joint. Severe associated soft tissue swelling and moderate ankle joint effusion. Signed by: Eldon Green MD on 01/15/2019 12:12 PM
== END 2019-01-15 13:32 | disposition home or self-care (01) ==
LOC: ER 10:03
DX: S82.842A Displaced bimalleolar fracture of left lower leg, initial encounter for closed fracture (principal); X50.1XXA Overexertion from prolonged static or awkward postures, initial encounter; Y92.008 Other place in unspecified non-institutional (private) residence as the place of occurrence of the external cause; I10 Essential (primary) hypertension; E11.9 Type 2 diabetes mellitus without complications; I25.10 Atherosclerotic heart disease of native coronary artery without angina pectoris; F41.9 Anxiety disorder, unspecified; K21.9 Gastro-esophageal reflux disease without esophagitis
CPT/HCPCS: 29515; 36415; 73562; 73610; 73630; 85610; 85730; 99283; J2270; J2405

== ENCOUNTER → 2019-01-28 | Outpatient (CLI) | payer MEDICARE, OTHER ==
[~2019-01-28] MED LIST changes: +ALENDRONATE SOD70 MG PO; +ATORVASTATIN CA20 MG PO; +METOPROLOL SUCC25 MG PO; +TRESIBA100 UNIT/1 SQ; +WARFARIN SODIUM5 MG PO
--- NOTE | 2019-01-28 10:52 | Diagnostic Imaging Report ---
EXAMINATION: PA and lateral views of the chest. COMPARISON: 08/02/2018 CLINICAL HISTORY: Preoperative study for foot surgery DISCUSSION: The lungs are well-inflated. No focal airspace consolidation, pleural effusion, or pneumothorax. Moderate enlargement of the cardiac silhouette with associated tortuous thoracic aorta. Prominence of the central pulmonary vasculature. No acute osseous abnormalities. Multilevel degenerative disc changes of the thoracic spine. IMPRESSION: Moderate cardiomegaly with pulmonary venous congestion. Signed by: Dr. Froylan Fontenot M.D. on 01/28/2019 10:49 AM
== END ==
LOC: RAD 09:56
PROVIDERS: ATTEND Internal Medicine
DX: Z01.818 Encounter for other preprocedural examination (principal)
CPT/HCPCS: 71046

== ENCOUNTER 2019-01-29 15:45 | Inpatient (IN) | payer MEDICARE, OTHER ==
[~2019-01-29] VITALS: Ht 154.9 cm; Wt 98.0 kg
[~2019-01-29 15:45] MED LIST changes: -ALENDRONATE SOD70 MG PO; -ATORVASTATIN CA20 MG PO; -METOPROLOL SUCC25 MG PO; -TRESIBA100 UNIT/1 SQ; -WARFARIN SODIUM5 MG PO
--- NOTE | 2019-01-29 16:36 | NUR ---
Brittany dyson in EDM - 01/29/19 at 1637 by ANNA PER FAMILY, LAST DOSE OF COUMADIN TAKEN 01/22/19.
--- NOTE | 2019-01-29 16:37 | NUR ---
LAST DOSE OF COUMADIN TAKEN 01/23/19.
[2019-01-29 17:03] LABS: BASOPHILS # (AUTO) 0.1 (0.0-0.1); BASOPHILS % 0.8 % (0.0-1.0); EOSINOPHILS # (AUTO) 0.2 (0.0-0.4); EOSINOPHILS % 2.4 % (0.0-6.0); LYMPHOCYTES # (AUTO) 2.3 (1.0-3.2); LYMPHOCYTES % 29.8 % (18.0-39.1); MEAN CORPUSCULAR HEMOGLOBIN 29.1 pg (28-32); MEAN CORPUSCULAR HGB CONC 30.8 g/dL (31-35); MEAN CORPUSCULAR VOLUME 94.5 fL (81-99); MONOCYTES # (AUTO) 0.9 (0.2-0.8); MONOCYTES % 11.1 % (4.4-11.3); NEUTROPHILS # (AUTO) 4.3 (2.1-6.9); NEUTROPHILS % 55.1 % (38.7-80.0); PLATELET COUNT 690 x10e3/uL (140-360)
[2019-01-29 17:09] LABS: HEMATOCRIT 20.8 % (34.2-44.1); HEMOGLOBIN 6.4 g/dL (12.0-16.0)
[2019-01-29 17:12] LABS: INR 1.84; PROTHROMBIN TIME 21.9 seconds (11.9-14.5)
[2019-01-29 17:13] LABS: PARTIAL THROMBOPLASTIN TIME 35.9 seconds (23.8-35.5)
[2019-01-29 17:20] LABS: ALANINE AMINOTRANSFERASE 9 IU/L (0-55); ALBUMIN 2.4 g/dL (3.5-5.0); ALBUMIN/GLOBULIN RATIO 0.6 (0.8-2.0); ALKALINE PHOSPHATASE 91 IU/L (40-150); ANION GAP 15.3 mmol/L (8-16); BLOOD UREA NITROGEN 24 mg/dL (7-26); BUN/CREATININE RATIO 18 (6-25); CALCIUM 8.2 mg/dL (8.4-10.2); CARBON DIOXIDE 21 mmol/L (22-29); CHLORIDE 102 mmol/L (98-107); CREATINE KINASE 103 IU/L (29-168); CREATININE, SERUM 1.31 mg/dL (0.57-1.11); EST GLOMERULAR FILTRATION RATE 39 ML/MIN (60-); GLUCOSE 208 mg/dL (74-118); POTASSIUM 5.3 mmol/L (3.5-5.1); SODIUM 133 mmol/L (136-145)
[2019-01-29 17:30] LABS: BILIRUBIN,URINE NEGATIVE (NEGATIVE); CLARITY,URINE SL CLOUDY (CLEAR); COLOR,URINE YELLOW (YELLOW); KETONES,URINE NEGATIVE (NEGATIVE); LEUKOCYTE ESTERASE ,URINE NEGATIVE (NEGATIVE); NITRITE,URINE NEGATIVE (NEGATIVE); PROTEIN,URINE DIPSTICK NEGATIVE (NEGATIVE); URINE UROBILINOGEN 0.2 mg/dL (0.2 - 1)
[2019-01-29 17:40] LABS: CREATINE KINASE MB < 1.00 ng/mL (0-4.3)
[2019-01-29 17:46] LABS: EPITHELIAL CELLS,URINE RARE /LPF
[2019-01-29] MEDS ORDERED: SODIUM CHLORIDE 0.9% 250ML 250 ML IV ONE (18:00)
[2019-01-29] MEDS ORDERED: SODIUM CHLORIDE 0.9% 500ML 500 ML IV ONE (18:00)
[2019-01-29] MEDS ORDERED: ONDANSETRON HCL INJ 2MG/ML 2ML 2 MG/ML VIAL IV PRN (18:30)
[2019-01-29] MEDS ORDERED: SODIUM CHLORIDE 0.9% 1000ML 1,000 ML IV ONE (18:30)
[2019-01-29] MEDS ORDERED: MORPHINE SULFATE 2 MG/ML SYR 1ML IV PRN (18:30)
--- NOTE | 2019-01-29 19:08 | Diagnostic Imaging Report ---
EXAMINATION: CHEST SINGLE (PORTABLE) INDICATION: Anemia COMPARISON: Chest x-ray 01/28/2019 FINDINGS: AP view TUBES and LINES: None. LUNGS: Lungs are well inflated. Lungs are clear. No consolidations. Prominent central pulmonary vasculature. PLEURA: No pleural effusion or pneumothorax. HEART AND MEDIASTINUM: Cardiac size is mildly enlarged. BONES AND SOFT TISSUES: No acute osseous lesion. Soft tissues are unremarkable. Degenerative changes in the spine and shoulders. UPPER ABDOMEN: No free air under the diaphragm. IMPRESSION: Mild cardiomegaly and pulmonary vascular congestion. Signed by: Saravanan Yen DO on 01/29/2019 7:05 PM
--- NOTE | 2019-01-29 19:40 | Diagnostic Imaging Report ---
History:Abnormal Labs Comparison studies:None Technique: Axial images were obtained from the skull base to the vertex. Coronal and sagittal images reconstructed from the axial data. Intravenous contrast: None Dose modulation, iterative reconstruction, and/or weight based adjustment of the mA/kV was utilized to reduce the radiation dose to as low as reasonably achievable. Findings: Scalp/skull: No abnormalities. Extra-axial spaces: No masses. No fluid collections. Brain sulci: Moderately prominent. Ventricles: Mild compensatory dilatation. No hydrocephalus. Parenchyma: Cortical-based hypodensity at the left posterior cerebellum, without significant volume loss. Scattered and confluent hypodensities in the supratentorial white matter are small vessel ischemic changes. Chronic rectum and infratentorial right subinsular region. Small chronic lacunar infarct at the left inferior cerebellum. No masses, hemorrhage, acute or chronic cortical vascular insults. Sellar/suprasellar region: No abnormalities. Craniocervical junction: Patent foramen magnum. No Chiari one malformation. Incidental findings: Atherosclerotic calcifications in the carotid siphons . Impression: Small age indeterminant infarct at the left posterior cerebellum. Chronic findings: 1. Moderate generalized volume loss. 2. Moderate to severe supratentorial white matter small vessel ischemic changes. 3. Small chronic lacunar infarct at the right subinsular region and left inferior cerebellum. The above finding was reported and acknowledged by Dr. Acosta 7:34 01/29/2019 Signed by: DR Bert Grove M.D. on 01/29/2019 7:37 PM
--- NOTE | 2019-01-29 19:44 | Diagnostic Imaging Report ---
History: Abnormal labs Comparison studies: None Technique: Axial images were obtained through the cervical region.. Coronal and sagittal images reconstructed from the axial data.. Intravenous contrast: None Dose modulation, iterative reconstruction, and/or weight based adjustment of the mA/kV was utilized to reduce the radiation dose to as low as reasonably achievable. Findings: Fractures: None. Soft tissues: No gross abnormalities. Atlantoaxial articulation: No acute abnormality. Minimal widening of the predental space nonspecific. Alignment: Straightening of the normal lordosis. No scoliosis. Cervicomedullary junction: No abnormalities. The foramen magnum is patent. Vertebrae: No infection or neoplasm. Degenerative changes: Decreased intervertebral disc at C5-6 and C6-7. No high-grade canal stenosis or foraminal narrowing. Atherosclerotic calcifications of the carotid siphons. IMPRESSION: 1. No acute cervical spine abnormalities. 2. Cannot exclude ligament, spinal cord and or vascular abnormalities on the basis of this examination. Signed by: DR Bert Grove M.D. on 01/29/2019 7:41 PM
[2019-01-29] MEDS ORDERED: METOPROLOL SUCC25 MG PO (20:12)
[2019-01-29] MEDS ORDERED: WARFARIN SODIUM5 MG PO (20:16)
[2019-01-29] MEDS ORDERED: ATORVASTATIN CA20 MG PO (20:16)
[2019-01-29] MEDS ORDERED: ALENDRONATE SOD70 MG PO (20:16)
[2019-01-29] MEDS ORDERED: TRESIBA100 UNIT/1 SQ (20:17)
--- NOTE | 2019-01-29 20:19 | Diagnostic Imaging Report ---
EXAM: CT Chest, Abdomen and Pelvis WITHOUT contrast INDICATION: FALL 01/15, trauma, anemia COMPARISON: None. TECHNIQUE: Chest, abdomen and pelvis were scanned utilizing a multidetector helical scanner from the lung apex to the pubic symphysis without administration of IV contrast. Absence of intravenous contrast decreases sensitivity for detection of focal lesions and vascular pathology. Coronal and sagittal reformations were obtained. Routine protocol was performed. IV CONTRAST: None ORAL CONTRAST: None COMPLICATIONS: None RADIATION DOSE: Total DLP: 2097 mGy*cm Estimated effective dose: (DLP x 0.015 x size factor) mSv CTDIvol has been reviewed. It is below the limits set by the Radiation Protocol Committee (RPC). Dose modulation, iterative reconstruction, and/or weight based adjustment of the mA/kV was utilized to reduce the radiation dose to as low as reasonably achievable. FINDINGS: LINES and TUBES: None. LUNGS AND AIRWAYS: Scattered areas of scarring and atelectasis. Airways are normal. PLEURA: The pleural spaces are clear. HEART AND MEDIASTINUM: The thyroid gland is is partially visualized but no gross abnormalities. No mediastinal, hilar or axillary lymphadenopathy. The heart is normal in size. There is no pericardial effusion. There are mild atherosclerotic calcifications in the aorta and coronary arteries. Low density of blood pool volume within the left ventricular cavity. HEPATOBILIARY: No focal hepatic lesions. There is intra- and extra- hepatic biliary dilation likely post cholecystectomy resevoir effect. GALLBLADDER: There are cholecystectomy clips. SPLEEN: Absent spleen, with small splenules in the left upper quadrant. PANCREAS: Pancreatic atrophy. No masses or ductal dilation. ADRENALS: No adrenal nodules KIDNEYS/URETERS: No hydronephrosis. No stones. Atrophic left kidney. Volume loss of the right kidney. There is a 2 cm cyst in the right kidney. GI TRACT: No abnormal distention, wall thickening, or evidence of bowel obstruction. Fundoplication surgical changes with small hiatal hernia. Appendix is normal. PELVIC ORGANS/BLADDER: Uterine calcifications. Bladder unremarkable. No adnexal masses. LYMPH NODES: No lymphadenopathy. VESSELS: There is moderate atherosclerotic disease in the aorta and major arterial branches. PERITONEUM / RETROPERITONEUM: No free air or fluid. BONES: Degenerative changes in the spine hips and pelvis, with mild anterolisthesis of L4 on L5.. Low bone mineral density. SOFT TISSUES: A 7.5 cm heterogeneous hyperdense mass in the right breast, possibly arises within the right pectoralis major muscle. Mild skin thickening and edema the right breast.. There are fat and bowel containing ventral abdominal hernias without evidence of obstruction or strangulation. Edema in the right faint subcutaneous adipose. IMPRESSION: 1. A 7.5 cm heterogeneous right breast mass, possibly arises within the right pectoralis major muscle, could represent an intramuscular hematoma in the setting of trauma. A primary breast mass is also of concern. Recommend mammographic and sonographic evaluation. 2. Soft tissue edema/contusions in the right breast and in the right flank subcutaneous adipose consistent with history of trauma. No fractures. 3. Bilateral renal atrophy, left worse than right. 4. Coronary artery calcific atherosclerosis with coronary stents. 5. Fundoplication surgical changes with small hiatal hernia. 6. CT findings of anemia. 7. Fat and bowel containing ventral abdominal hernias without evidence of obstruction or strangulation. 8. Advanced degenerative changes in the spine with mild anterolisthesis of L4 on L5. Signed by: Saravanan Yen DO on 01/29/2019 8:15 PM
[2019-01-29 21:40] VITALS: BP 113/52
--- NOTE | 2019-01-29 21:45 | NUR ---
dr feldman paged regarding blood sugar.
--- NOTE | 2019-01-29 22:15 | NUR ---
Received the patient from [facility] in a stretcher with c/o anemia.abnormal lab value.admission assessment done.aaox3.no resp.distress.has h/o left ankle fracture.left ankle is supported with with splint and jorge wrap.oriented to the unit.bed locked and in lowest position.phone and call light within reach.instructed to call for assistance as needed.iv to right ac is leaking.removed and applied pressure dressing.bruise noted to back,abd and chest.
[2019-01-29 22:30] VITALS: BP 113/52
[2019-01-30] VITALS (8 sets, daily range): BP systolic 119–140; BP diastolic 52–66
[2019-01-30] MEDS ORDERED: SODIUM CHLORIDE 0.9% 250ML 250 ML ONE (00:12)
--- NOTE | 2019-01-30 00:30 | NUR ---
New iv started to left ac #20 is patent.First unit of blood started after verify with another RN.stable condition.Tele #[phone]
[2019-01-30 00:40] LABS: CREATINE KINASE 93 IU/L (29-168)
--- NOTE | 2019-01-30 00:54 | NUR ---
IS IN THE UNIT.AWARE OF THE CONSULTATION.WILL COME AND SEE TOMORROW.RECEIVED NEW ORDERS FROM .
[2019-01-30] MEDS ORDERED: DEXTROSE 50% SYRINGE 50 ML IV PRN (01:00)
[2019-01-30] MEDS: FUROSEMIDE INJ 10 MG/ML 2 ML VIAL IV PRN ×2 (03:20→10:34)
--- NOTE | 2019-01-30 03:26 | NUR ---
First unit of blood transfusion completed.stable condition.tolerated well.
[2019-01-30 05:53] LABS: BASOPHILS # (AUTO) 0.1 (0.0-0.1); EOSINOPHILS # (AUTO) 0.3 (0.0-0.4); EOSINOPHILS % 3.1 % (0.0-6.0); LYMPHOCYTES % 24.8 % (18.0-39.1); MEAN CORPUSCULAR HEMOGLOBIN 29.2 pg (28-32); MEAN CORPUSCULAR HGB CONC 31.4 g/dL (31-35); MEAN CORPUSCULAR VOLUME 93.2 fL (81-99); MONOCYTES % 12.6 % (4.4-11.3); NEUTROPHILS # (AUTO) 4.7 (2.1-6.9); NEUTROPHILS % 57.9 % (38.7-80.0); PLATELET COUNT 604 x10e3/uL (140-360); RED BLOOD COUNT 2.36 x10e6/uL (3.6-5.1); RED CELL DISTRIBUTION WIDTH 22.3 % (11.7-14.4)
[2019-01-30 05:57] LABS: HEMOGLOBIN 6.9 g/dL (12.0-16.0)
--- NOTE | 2019-01-30 06:00 | NUR ---
Second unit of blood transfusion started after verify with another Rn.v/s stable.
[2019-01-30 06:12] LABS: ALBUMIN 2.3 g/dL (3.5-5.0); ALBUMIN/GLOBULIN RATIO 0.7 (0.8-2.0); ANION GAP 11.6 mmol/L (8-16); CALCIUM 8.1 mg/dL (8.4-10.2); CREATININE, SERUM 0.96 mg/dL (0.57-1.11); POTASSIUM 4.6 mmol/L (3.5-5.1)
--- NOTE | 2019-01-30 07:23 | NUR ---
Bed side shift report given to the oncoming Rn.stable condition.
[2019-01-30] MEDS: INSULIN LISPRO 100 UNIT/1 ML 3ML VIAL SQ SCH ×4 (07:30→20:52)
[2019-01-30 08:00] LABS: CREATINE KINASE 87 IU/L (29-168)
[2019-01-30] MEDS ORDERED: FUROSEMIDE 40 MG TAB PO SCH (09:00)
[2019-01-30] MEDS: AMLODIPINE BESYLATE 5 MG TAB PO SCH (10:04)
[2019-01-30] MEDS: PANTOPRAZOLE SOD 40 MG TABEC PO SCH (10:04)
[2019-01-30] MEDS: ENALAPRIL MALEATE 10 MG TAB PO SCH (10:04)
[2019-01-30] MEDS: ESCITALOPRAM OXALATE 10 MG TAB PO SCH (10:05)
[2019-01-30 12:59] LABS: BASOPHILS # (AUTO) 0.1 (0.0-0.1); BASOPHILS % 0.9 % (0.0-1.0); EOSINOPHILS # (AUTO) 0.2 (0.0-0.4); EOSINOPHILS % 2.7 % (0.0-6.0); HEMATOCRIT 25.6 % (34.2-44.1); HEMOGLOBIN 8.2 g/dL (12.0-16.0); LYMPHOCYTES # (AUTO) 1.8 (1.0-3.2); LYMPHOCYTES % 26.2 % (18.0-39.1); MEAN CORPUSCULAR HEMOGLOBIN 29.1 pg (28-32); MEAN CORPUSCULAR VOLUME 90.8 fL (81-99); MONOCYTES # (AUTO) 0.7 (0.2-0.8); MONOCYTES % 9.5 % (4.4-11.3); NEUTROPHILS # (AUTO) 4.2 (2.1-6.9); NEUTROPHILS % 60.3 % (38.7-80.0); PLATELET COUNT 617 x10e3/uL (140-360); RED BLOOD COUNT 2.82 x10e6/uL (3.6-5.1); RED CELL DISTRIBUTION WIDTH 21.7 % (11.7-14.4)
[2019-01-30 13:33] LABS: CREATINE KINASE 79 IU/L (29-168)
[2019-01-30 14:37] LABS: CREATINE KINASE MB < 1.00 ng/mL (0-4.3)
--- NOTE | 2019-01-30 18:48 | Consultation ---
DATE OF CONSULTATION: Cardiology Consultation HISTORY OF PRESENT ILLNESS: The patient is a 78-year-old female with primary history of hypertension, CAD, status post stent, taking Coumadin at home, diabetes type 2, GERD, who fell about 3 weeks ago and fractured her left ankle. Now, being admitted because of anemia with admitting hemoglobin of 6.2 and is now receiving blood transfusions. The patient denies any chest pain, shortness of breath, dizziness, or palpitations. PAST MEDICAL HISTORY: Hypertension, diabetes, GERD, CAD, status post stent. PAST SURGICAL HISTORY: Back surgeries, hysterectomy, and carotid right endarterectomy. MEDICATIONS: She is taking furosemide, enalapril, Escitalopram, amlodipine, pantoprazole, and atorvastatin. SOCIAL HISTORY: No alcohol, tobacco, or illegal drug use. FAMILY HISTORY: Mother is from heart attack. Father is , unknown cause. REVIEW OF SYSTEMS: CONSTITUTIONAL: Energy level is good. She uses walker and wheelchair at home after the fall. HEENT: No headache. No change in vision, nose, or ear problems or sore throat. RESPIRATORY: No history of cough, wheezing, asthma, hemoptysis. CARDIAC: Denies fatigue, lightheadedness, palpitations, or chest pain. VASCULAR: No history of claudication or DVT. GI: No GERD symptoms. No dysphagia. No nausea or vomiting. No hemoptysis. : No complaints of dysuria or hematuria. NEUROMUSCULAR: She has left leg fractured ankle with a cast and complaining of pain to the extremity. NEUROLOGICAL: Complains of no weakness, no numbness, or incoordination. PHYSICAL EXAMINATION: VITAL SIGNS: Temperature 98.3, pulse 65, BP is 137/63, RR is 20, 94% SPO2 on room air. GENERAL: The patient is awake, alert, oriented, and cooperative. Generally, she is a well-developed, slightly obese elderly woman, lying in bed, breathing with no difficulty. SKIN: Warm and dry, but has scattered bruising to body, upper and lower extremities, more on the left lower extremity. HEENT: Head normocephalic atraumatic. Normal eyelids and sclerae. No lymphadenopathy. No JVD. RESPIRATORY: Lungs are clear to auscultation bilaterally. No wheezing. No rhonchi, rales, or rubs. CARDIOVASCULAR: S1 and S2 audible. Regular rate and rhythm. PMI is in the 5th intercostal space of a midclavicular line. No significant murmurs. GASTROINTESTINAL: Soft, nontender, nondistended. No hepatosplenomegaly. Bowel sounds are present. EXTREMITIES: Left lower extremity is with cast. Toes moves freely. Right lower extremity, no cyanosis, no clubbing, or edema. NEUROVASCULAR: Motor is intact. Pulses are palpable 2+ throughout. NEUROLOGIC: Moderate and sensory examination of the upper and lower extremities are normal. LABORATORY DATA: Sodium 133, potassium 4.6, chloride 103, CO2 23, BUN 20, creatinine 0.96, glucose 145. WBC 8.5, hemoglobin 6.9, hematocrit of 22, platelets 604. PT and INR 21.9 and 1.84. PTT 35.9. EKG is normal sinus rhythm. PLAN: 1. Continue home medications and pain control. 2. Transfuse as needed and repeat CBC. 3. Stop Coumadin. Last dose was a week ago. 4. The patient is cleared for endoscopy or colonoscopy and surgical procedures. Dictated by Neema Flor NP MD KIM Dugan/BLANCA /[id number]
[2019-01-30] MEDS ORDERED: ATORVASTATIN 40 MG TAB PO SCH (21:00)
[2019-01-30] MEDS ORDERED: ATORVASTATIN 20 MG TAB PO SCH (21:00)
[2019-01-31] VITALS: BP_SYST 120; BP_SYST 126; BP_DIAS 60
[2019-01-31 04:00] VITALS: BP 114/63
[2019-01-31 05:58] LABS: FERRITIN 162.08 ng/mL (4.63-204.00)
[2019-01-31] MEDS: INSULIN LISPRO 100 UNIT/1 ML 3ML VIAL SQ SCH ×2 (07:30→11:30)
[2019-01-31] MEDS: ESCITALOPRAM OXALATE 10 MG TAB PO SCH (08:17)
[2019-01-31] MEDS: PANTOPRAZOLE SOD 40 MG TABEC PO SCH (08:17)
[2019-01-31] MEDS: AMLODIPINE BESYLATE 5 MG TAB PO SCH (08:17)
[2019-01-31] MEDS: ENALAPRIL MALEATE 10 MG TAB PO SCH (08:18)
[2019-01-31 08:24] VITALS: BP 170/84
[2019-01-31 08:37] VITALS: BP 170/84
[2019-01-31] MEDS ORDERED: FUROSEMIDE 20 MG TAB PO SCH (09:00)
[2019-01-31 13:41] VITALS: BP 140/65
[2019-01-31 14:32] LABS: BASOPHILS # (AUTO) 0.1 (0.0-0.1); BASOPHILS % 0.9 % (0.0-1.0); EOSINOPHILS # (AUTO) 0.2 (0.0-0.4); EOSINOPHILS % 2.7 % (0.0-6.0); HEMATOCRIT 28.6 % (34.2-44.1); HEMOGLOBIN 8.9 g/dL (12.0-16.0); LYMPHOCYTES # (AUTO) 1.9 (1.0-3.2); MEAN CORPUSCULAR HGB CONC 31.1 g/dL (31-35); MEAN CORPUSCULAR VOLUME 93.2 fL (81-99); MONOCYTES # (AUTO) 0.7 (0.2-0.8); NEUTROPHILS # (AUTO) 4.5 (2.1-6.9); NEUTROPHILS % 60.9 % (38.7-80.0); PLATELET COUNT 659 x10e3/uL (140-360); RED BLOOD COUNT 3.07 x10e6/uL (3.6-5.1); RED CELL DISTRIBUTION WIDTH 23.1 % (11.7-14.4)
[2019-01-31 14:55] LABS: ALBUMIN 2.5 g/dL (3.5-5.0); ALBUMIN/GLOBULIN RATIO 0.7 (0.8-2.0); ANION GAP 14.1 mmol/L (8-16); CALCIUM 8.7 mg/dL (8.4-10.2); CREATININE, SERUM 0.96 mg/dL (0.57-1.11); POTASSIUM 5.1 mmol/L (3.5-5.1)
--- NOTE | 2019-01-31 15:31 | Discharge Summary ---
ADMITTING DIAGNOSES: 1. Acute on chronic anemia. 2. Multiple hematomas secondary to traumatic fall. 3. Coronary artery disease. 4. Paroxysmal atrial fibrillation. 5. Left malleolar fracture. 6. Moderate vascular dementia. 7. Cerebrovascular disease. 8. Acute renal insufficiency. DISCHARGE DIAGNOSES: 1. Status post transfusion of 2 units of packed red cells. 2. Multiple hematoma secondary to mechanical fall. 3. Acute on chronic anemia secondary to intramuscular hemorrhaging/hematomas. 4. Acute renal insufficiency, resolved. 5. Chronic diastolic congestive heart failure. 6. Moderate vascular dementia. 7. Cerebrovascular disease. 8. Paroxysmal atrial fibrillation. 9. Hypertensive heart disease. HOSPITAL COURSE: This is a 78-year-old woman, who has known history of moderate vascular dementia secondary to cerebrovascular disease. The patient also history of paroxysmal atrial fibrillation and is on warfarin therapy. The patient suffered a mechanical fall recently, which resulted in left malleolar fracture as well as multiple subcutaneous hematomas throughout her body, particularly in her right breast. The hematoma on the right breast was appreciated on the CT abdomen and pelvis. The patient also underwent a CT of the head on admission, that did not reveal any intracranial hemorrhaging. The decision was made to stop warfarin therapy by her net application support specialist, Dr. Froylan Varghese. On admission, the patient's hemoglobin was 6.4 g/dL, and she was transfused 2 units of packed red cells. The patient's hemoglobin on discharge was 8.2 g/dL. The patient's Hemoccult stool was negative. It was felt that her acute on chronic anemia was secondary to the multiple hematoma that she sustained from her mechanical fall. CONDITION ON DISCHARGE: Stable. DISCHARGE MEDICATIONS: 1. Enalapril 20 mg daily. 2. Furosemide 20 mg daily. 3. Pantoprazole 40 mg daily. 4. Lexapro 10 mg daily. 5. Amlodipine 2.5 mg daily. 6. Atorvastatin 40 mg at bedtime. 7. Isosorbide mononitrate 30 mg daily. Once again warfarin therapy was held until further notice. FOLLOWUP INSTRUCTIONS: The patient was instructed to follow up with Dr. Froylan Varghese within one week, so she can be cleared for surgical repair of her left ankle fracture. MD HILDA Zepeda/BLANCA /[id number] cc: MD Miryam Dugan MD MTDD
[2019-01-31 16:21] VITALS: BP 130/65
== END 2019-01-31 16:38 | disposition home or self-care (01) | DRG 812 ==
LOC: ER 15:45 → ERHOLD 18:49 → MED/SURG 22:18
PROVIDERS: ADMIT Internal Medicine; ATTEND Internal Medicine
PROC: 30233N1 Transfusion of Nonautologous Red Blood Cells into Peripheral Vein, Percutaneous Approach (ICD-10-PCS; principal; 2019-01-30)
DX: D62 Acute posthemorrhagic anemia (principal); I50.32 Chronic diastolic (congestive) heart failure; N17.9 Acute kidney failure, unspecified; I25.10 Atherosclerotic heart disease of native coronary artery without angina pectoris; Z95.5 Presence of coronary angioplasty implant and graft; E11.9 Type 2 diabetes mellitus without complications; S20.01XA Contusion of right breast, initial encounter; W19.XXXA Unspecified fall, initial encounter; I69.398 Other sequelae of cerebral infarction; F01.50 Vascular dementia, unspecified severity, without behavioral disturbance, psychotic disturbance, mood disturbance, and anxiety; I48.0 Paroxysmal atrial fibrillation; Z79.01 Long term (current) use of anticoagulants; I11.0 Hypertensive heart disease with heart failure; S82.892A Other fracture of left lower leg, initial encounter for closed fracture; R58 Hemorrhage, not elsewhere classified
CPT/HCPCS: 36415; 70450; 71045; 71250; 72125; 74176; 80053; 81001; 82270; 82550; 82553; 82607; 82728; 82746; 82948; 83540; 83735; 84466; 84484; 85025; 85045; 85610; 85730; 86850; 86900; 86920; 87086; 93005; 96372; 99284; J1940; J7040; J7050; P9016

== ENCOUNTER 2019-04-03 17:02 | Observation (INO) | payer MEDICARE, OTHER ==
[~2019-04-03] VITALS: Ht 154.9 cm; Wt 88.9 kg
[~2019-04-03 17:02] MED LIST changes: +ALENDRONATE SOD70 MG PO; +ATORVASTATIN CA20 MG PO; +METOPROLOL SUCC25 MG PO; +TRESIBA100 UNIT/1 SQ; +WARFARIN SODIUM5 MG PO
[2019-04-03] MEDS ORDERED: ASPIRIN 81 MG CHEW TAB PO ONE (17:15)
--- NOTE | 2019-04-03 18:01 | Diagnostic Imaging Report ---
EXAMINATION: CHEST SINGLE (PORTABLE) INDICATION: Chest pain ^ERMD ORDER ^[id number] ^1740 ^Y COMPARISON: None FINDINGS: TUBES and LINES: None. LUNGS: Perihilar peribronchial hazy opacity could be due to bronchitis. No consolidated pneumonia. PLEURA: No pleural effusion or pneumothorax. HEART AND MEDIASTINUM: Cardiomegaly with pulmonary vascular congestion. BONES AND SOFT TISSUES: No acute osseous lesion. Soft tissues are unremarkable. UPPER ABDOMEN: No free air under the diaphragm. IMPRESSION: Perihilar peribronchial hazy opacity could be due to bronchitis. No consolidated pneumonia. Cardiomegaly with pulmonary vascular congestion. Signed by: Dr. Mansoor Womack M.D. on 04/03/2019 5:59 PM
[2019-04-03 18:33] LABS: HEMATOCRIT 36.5 % (34.2-44.1); HEMOGLOBIN 11.7 g/dL (12.0-16.0); MEAN CORPUSCULAR VOLUME 96.8 fL (81-99); RED BLOOD COUNT 3.77 x10e6/uL (3.6-5.1)
[2019-04-03 18:34] LABS: BASOPHILS % 0.1 % (0.0-1.0); MEAN CORPUSCULAR HGB CONC 32.1 g/dL (31-35); MONOCYTES % 0.6 % (4.4-11.3); NEUTROPHILS % 5.6 % (38.7-80.0); PLATELET COUNT 337 x10e3/uL (140-360); RED CELL DISTRIBUTION WIDTH 16.6 % (11.7-14.4)
[2019-04-03 18:56] LABS: INR 0.95; PARTIAL THROMBOPLASTIN TIME 26.2 seconds (23.8-35.5); PROTHROMBIN TIME 13.2 seconds (11.9-14.5)
[2019-04-03] MEDS ORDERED: NITROGLYCERIN 0.4 MG SUBL SL PRN (19:00)
[2019-04-03] MEDS ORDERED: MORPHINE SULFATE 2 MG/ML SYR 1ML IV PRN (19:00)
[2019-04-03] MEDS ORDERED: ONDANSETRON HCL INJ 2MG/ML 2ML 2 MG/ML VIAL IV PRN (19:00)
[2019-04-03] MEDS ORDERED: DEXTROSE 50% SYRINGE 50 ML IV PRN (19:00)
[2019-04-03 19:03] LABS: CREATININE, SERUM 1.17 mg/dL (0.57-1.11)
[2019-04-03 19:04] LABS: ALBUMIN 3.1 g/dL (3.5-5.0); ALBUMIN/GLOBULIN RATIO 0.8 (0.8-2.0); CALCIUM 8.6 mg/dL (8.4-10.2); CREATINE KINASE MB 0.8 ng/mL (0-5.0)
[2019-04-03 20:30] VITALS: BP 150/62
--- NOTE | 2019-04-03 20:30 | NUR ---
RECEIVED PATIENT FROM ED AT THIS TIME VIA WHEELCHAIR, PATIENT AMBULATED TO BED, STEADY, SLOW GAIT NOTED. PATIENT USES WALKER AT HOME, WILL PROVIDE ONE FOR USE. NO CHEST PAIN REPORTED AT THIS TIME, NO SOB. EXPLAINED TO PATIENT TO CALL IMMEDIATELY IF SHE HAS PAIN AGAIN, PATIENT VERBALIZED UNDERSTANDING. LUNG SOUNDS CLEAR. BOWEL SOUNDS ACTIVE. PEDAL PULSES PALPABLE. SKIN INTACT. L AV 20G IV ASYMPTOMATIC, INTACT, AND PATENT. PATIENT ORIENTED TO ROOM AND CALL LIGHT SYSTEM. BED LOCKED IN LOWEST POSITION, SIDE RAILS UPX2, CALL LIGHT IN REACH.
[2019-04-03 20:52] VITALS: BP 150/62
[2019-04-03 21:01] VITALS: BP 150/62
--- NOTE | 2019-04-03 21:10 | NUR ---
PATIENT REPORTS SHE DOES NOT HAVE HER LIST OF MEDICATIONS WITH HER AND DOES NOT KNOW WHAT SHE TAKES. ASKED PATIENT TO HAVE DAUGHTER BRING MED LIST WHEN SHE COMES TO VISIT IN THE MORNING, PATIENT VERBALIZED UNDERSTANDING.
[2019-04-03] MEDS ORDERED: INFLUENZA VIRUS VAC SPLIT INJ 0.5 ML SYR IM SCH (22:00)
[2019-04-03] MEDS: INSULIN LISPRO 100 UNIT/1 ML 3ML VIAL SQ SCH (22:03)
[2019-04-04] VITALS (8 sets, daily range): BP systolic 138–181; BP diastolic 60–77
[2019-04-04 01:42] LABS: CREATINE KINASE MB 1.1 ng/mL (0-5.0)
[2019-04-04 05:53] LABS: BASOPHILS # (AUTO) 0.1 (0.0-0.1); BASOPHILS % 0.9 % (0.0-1.0); EOSINOPHILS # (AUTO) 0.2 (0.0-0.4); HEMATOCRIT 32.2 % (34.2-44.1); HEMOGLOBIN 10.6 g/dL (12.0-16.0); LYMPHOCYTES # (AUTO) 3.5 (1.0-3.2); LYMPHOCYTES % 45.3 % (18.0-39.1); MEAN CORPUSCULAR HGB CONC 32.9 g/dL (31-35); MEAN CORPUSCULAR VOLUME 94.2 fL (81-99); MONOCYTES # (AUTO) 0.7 (0.2-0.8); MONOCYTES % 9.3 % (4.4-11.3); NEUTROPHILS # (AUTO) 3.2 (2.1-6.9); NEUTROPHILS % 41.2 % (38.7-80.0); PLATELET COUNT 297 x10e3/uL (140-360); RED BLOOD COUNT 3.42 x10e6/uL (3.6-5.1); RED CELL DISTRIBUTION WIDTH 16.6 % (11.7-14.4)
[2019-04-04 06:16] LABS: ALANINE AMINOTRANSFERASE 7 IU/L (0-55); ALBUMIN 2.6 g/dL (3.5-5.0); ALBUMIN/GLOBULIN RATIO 0.8 (0.8-2.0); ALKALINE PHOSPHATASE 110 IU/L (40-150); ANION GAP 13.5 mmol/L (8-16); BLOOD UREA NITROGEN 11 mg/dL (7-26); BUN/CREATININE RATIO 13 (6-25); CALCIUM 8.4 mg/dL (8.4-10.2); CARBON DIOXIDE 21 mmol/L (22-29); CHLORIDE 105 mmol/L (98-107); CHOL/HDL RATIO 2.3 (3.0-3.6); CHOLESTEROL 141 MD/DL (0-199); CREATININE, SERUM 0.83 mg/dL (0.57-1.11); EST GLOMERULAR FILTRATION RATE > 60 ML/MIN (60-); GLUCOSE 105 mg/dL (74-118); HDL CHOLESTEROL 62 MG/DL (40-60); LDL CHOLESTEROL 62 MG/DL (60-130); POTASSIUM 3.5 mmol/L (3.5-5.1); SODIUM 136 mmol/L (136-145); TRIGLYCERIDES 86 MG/DL (0-149)
[2019-04-04 06:22] LABS: CREATINE KINASE MB 0.8 ng/mL (0-5.0)
--- NOTE | 2019-04-04 07:00 | NUR ---
RECEIVED PATIENT AWAKE RESTING IN BED NO S/S OF DISTRESS. BED LOW, WHEELS LOCKED, SIDE RAILS X2. CALL LIGHT IN REACH WILL CONTINUE TO MONITOR PATIENT.
[2019-04-04] MEDS: INSULIN LISPRO 100 UNIT/1 ML 3ML VIAL SQ SCH ×5 (07:30→21:28)
[2019-04-04] MEDS: ASPIRIN 81 MG ENTERIC COATED PO SCH (09:06)
--- NOTE | 2019-04-04 11:05 | NUR ---
PATIENT A/O X3, EVEN RESPIRATIONS ON RA. LUNG SOUNDS CLEAR TO AUSCULTATION. BOWEL SOUNDS PRESENT. TELEMETRY #18 SR. LEFT AC 20 GAUGE IV SL, IV INTACT AND PATENT. PATIENT AMBULATES WITH ASSISTANCE. LLE CAST IN PLACE, PRESENT ON ADMISSION. NO CHEST PAIN AT THIS TIME. SKIN INTACT, NO EDEMA. CALL LIGHT IN REACH WILL CONTINUE TO MONITOR PATIENT.
[2019-04-04] MEDS ORDERED: NITROGLYCERIN 0.4 MG SUBL SL SCH (13:30)
[2019-04-04] MEDS ORDERED: ALENDRONATE SODIUM 70 MG TAB PO SCH (13:30)
[2019-04-04] MEDS ORDERED: FUROSEMIDE 40 MG TAB PO SCH (14:00)
[2019-04-04] MEDS: ESCITALOPRAM OXALATE 10 MG TAB PO SCH (14:34)
[2019-04-04] MEDS: FUROSEMIDE 20 MG TAB PO SCH (14:34)
[2019-04-04] MEDS: AMLODIPINE BESYLATE 5 MG TAB PO SCH (14:34)
[2019-04-04] MEDS: ENALAPRIL MALEATE 10 MG TAB PO SCH (14:35)
[2019-04-04] MEDS ORDERED: NITROGLYCERIN 0.4 MG SUBL SL PRN (16:00)
[2019-04-04] MEDS ORDERED: METOPROLOL SUCCINATE 25 MG TAB XL PO SCH (16:15)
[2019-04-04] MEDS: METOPROLOL SUCCINATE 25 MG TAB XL PO SCH (16:28)
--- NOTE | 2019-04-04 17:10 | Consultation ---
DATE OF CONSULTATION: 04/04/2019 Cardiology Consultation CHIEF COMPLAINT: The patient is a 79-year-old with chest pain. HISTORY OF PRESENT ILLNESS: The patient is a 79-year-old, who came to the emergency room with left-sided chest pain after walking up the stairs. Pain lasted about 5 or 10 minutes. The patient has had no recurrent chest pain. The patient has had some shortness of breath. No nausea. No vomiting. No abdominal pain. PAST MEDICAL HISTORY: Significant for: 1. Coronary artery disease with stents placed about 10 years ago. 2. Previous carotid endarterectomy. 3. Previous back surgery. 4. Hypertension. 5. Diabetes mellitus. 6. Previous cholecystectomy. MEDICATIONS AT HOME: Include amlodipine, atorvastatin, enalapril, furosemide, insulin, isosorbide, and metoprolol. SOCIAL HISTORY: The patient does not drink and does not smoke. FAMILY HISTORY: There is known family history of hypertension. PHYSICAL EXAMINATION: GENERAL: The patient is a well-developed, well-nourished female, in no distress. VITAL SIGNS: Include a temperature of 97.6, pulse was 68, blood pressure 144/66. HEAD, EARS, EYES, NOSE, AND THROAT: The patient's cranium was normocephalic and atraumatic. Extraocular muscles were intact. Sclerae were anicteric. Pupils were equal, round, and reactive to light. There is no pallor or cyanosis of the oral mucosa. There is no erythema or edema of the throat. NECK: Supple. No jugular venous distention. No carotid bruits. CHEST: Demonstrated rhonchi bilaterally. CARDIAC: Demonstrated normal S1 and S2 with a short 2/6 systolic murmur. ABDOMEN: Demonstrated good bowel sounds. No tenderness and no masses. EXTREMITIES: No clubbing, no cyanosis, and no edema. NEUROLOGICAL: The patient was alert and oriented x3. Cranial nerves II through XII were intact. Motor strength was +5/+5 in all limbs. DIAGNOSTIC DATA: The patient's EKG demonstrated normal sinus rhythm with some nonspecific ST and T-wave changes. IMPRESSION: The patient is a 79-year-old with atypical chest pain. RECOMMENDATIONS: 1. The patient will need to be monitored on telemetry. 2. Cardiac enzymes have been ordered. 3. The patient will need a Lexiscan nuclear stress test to exclude ischemia. 4. An echocardiogram has been ordered. MD DESI Dugan/BLANCA /[id number] cc: Milo Trotter MD
--- NOTE | 2019-04-04 18:55 | NUR ---
Received patient from day nurse, patient is alert and oriented x 3, safety and fall precautions maintained as per hospital protocol: bed in lowest position and locked, needed items beside bed, yellow socks on patient, patient is currently stable will continue to monitor.
[2019-04-04] MEDS ORDERED: ATORVASTATIN 20 MG TAB PO SCH (21:00)
[2019-04-05 00:12] VITALS: BP 127/60
[2019-04-05 04:00] VITALS: BP 105/51
--- NOTE | 2019-04-05 07:00 | NUR ---
RECEIVED PATIENT AWAKE RESTING IN BED NO S/S OF DISTRESS. BED LOW, WHEELS LOCKED, SIDE RAILS X2. CALL LIGHT IN REACH WILL CONTINUE TO MONITOR PATIENT.
[2019-04-05] MEDS ORDERED: PANTOPRAZOLE SOD 40 MG TABEC PO SCH (07:30)
[2019-04-05] MEDS: INSULIN LISPRO 100 UNIT/1 ML 3ML VIAL SQ SCH ×5 (07:30→16:30)
[2019-04-05 08:07] VITALS: BP 149/66
[2019-04-05] MEDS: ESCITALOPRAM OXALATE 10 MG TAB PO SCH (08:23)
[2019-04-05] MEDS: AMLODIPINE BESYLATE 5 MG TAB PO SCH (08:23)
[2019-04-05] MEDS: FUROSEMIDE 20 MG TAB PO SCH (08:23)
[2019-04-05] MEDS: ASPIRIN 81 MG ENTERIC COATED PO SCH (08:23)
[2019-04-05] MEDS: METOPROLOL SUCCINATE 25 MG TAB XL PO SCH (08:24)
[2019-04-05] MEDS: ENALAPRIL MALEATE 10 MG TAB PO SCH (08:24)
[2019-04-05] MEDS ORDERED: ISOSORBIDE MONONITRATE 20 MG TAB PO SCH (09:00)
[2019-04-05] MEDS ORDERED: METOPROLOL SUCCINATE 25 MG TAB XL PO SCH (09:00)
[2019-04-05 09:57] VITALS: BP 149/66
[2019-04-05 12:01] VITALS: BP 98/52
--- NOTE | 2019-04-05 12:45 | NUR ---
Spoke with Dr. Delphine Trotter. He stated pt has not been discharged due to cardiology stating not to. Cardiology concerned with ischemia and wants to keep pt for Stress test on 04/06/2019.
--- NOTE | 2019-04-05 14:20 | NUR ---
SPOKE WITH DR. SCHULZ, PATIENT OK TO DISCHARGE HOME ON HIS STANDPOINT AND STRESS TEST CAN BE DONE AN OUTPATIENT AT THIS OFFICE.
--- NOTE | 2019-04-05 14:52 | NUR ---
SPOKE WITH DR. WATSON, PATIENT OK TO DISCHARGE. NEW ORDERS IMPLEMENTED.
[2019-04-05 16:22] VITALS: BP 136/59
[2019-04-05] MEDS ORDERED: INFLUENZA VIRUS VAC SPLIT INJ 0.5 ML SYR IM NR (18:00)
--- NOTE | 2019-04-05 18:15 | NUR ---
REMOVED PATIENTS IV. CATHETER TIP INTACT AND PRESSURE DRESSING APPLIED.
--- NOTE | 2019-04-05 18:38 | NUR ---
PATIENT DISCHARGED FROM FACILITY. PATIENT GATHERED ALL PERSONAL BELONGINGS, DISCHARGE INSTRUCTIONS AND FOLLOW UP INFORMATION. PATIENT LEFT UNIT IN WHEELCHAIR AND WENT HOME VIA PRIVATE AUTO.
== END 2019-04-05 18:38 | disposition home or self-care (01) ==
LOC: ER 17:02 → ERHOLD 18:59 → MED/SURG 20:39
PROVIDERS: ADMIT Internal Medicine; ATTEND Internal Medicine
DX: R07.89 Other chest pain (principal); E11.9 Type 2 diabetes mellitus without complications; I25.10 Atherosclerotic heart disease of native coronary artery without angina pectoris; I10 Essential (primary) hypertension; Z95.5 Presence of coronary angioplasty implant and graft; Z90.49 Acquired absence of other specified parts of digestive tract; Z79.4 Long term (current) use of insulin
CPT/HCPCS: 36415 ×3; 71045; 80053 ×2; 80061; 82550 ×2; 82553 ×2; 82948 ×3; 83880; 84484 ×2; 85025 ×2; 85379; 85610; 85730; 93005; 93306; 93880; 99284; G0378 ×3; S0164

== ENCOUNTER 2022-07-19 16:14 | Emergency (ER) | payer OTHER, MEDICARE ==
[~2022-07-19] VITALS: Ht 154.9 cm; Wt 95.3 kg
[2022-07-19 17:52] VITALS: BP 178/61; PULSE 65; RESP 18; O2SAT 100
== END 2022-07-19 17:55 | disposition home or self-care (01) ==
LOC: ER 16:27
DX: S00.83XA Contusion of other part of head, initial encounter (principal); W03.XXXA Other fall on same level due to collision with another person, initial encounter; Y93.89 Activity, other specified; Y92.89 Other specified places as the place of occurrence of the external cause; I10 Essential (primary) hypertension; E11.9 Type 2 diabetes mellitus without complications; I48.91 Unspecified atrial fibrillation; I25.10 Atherosclerotic heart disease of native coronary artery without angina pectoris; E78.5 Hyperlipidemia, unspecified; K21.9 Gastro-esophageal reflux disease without esophagitis; F41.9 Anxiety disorder, unspecified; M21.372 Foot drop, left foot; Z95.5 Presence of coronary angioplasty implant and graft
CPT/HCPCS: 70450; 72125; 99283

== ENCOUNTER → 2024-08-24 | Outpatient (REF) | payer MEDICARE, OTHER | LOC: RAD 15:10 | PROVIDERS: ATTEND Internal Medicine | DX: M54.50 Low back pain, unspecified (principal) | CPT/HCPCS: 72110 ==